=== PATIENT | male | born 1945 | race Hispanic/Latino ===

== ENCOUNTER 2025-02-11 19:46 | Emergency (ER) | payer OTHER, MEDICAID ==
[~2025-02-11] VITALS: Ht 170.2 cm; Wt 85.3 kg
--- NOTE | 2025-02-11 20:33 | ERN ---
ED Note History of Present Illness Stated Complaint: LAC/AVULSION TO RT MIDDLE FINGER WITH LAWNMOVER Chief Complaint: Laceration/Avulsion Time Seen by MD: 19:53 Dictation: 79-year-old male presents to ER complaints of laceration to right 3rd digit. Patient states he stuck his hand under the lawnmower while it was on and it cut his finger. Patient unknown of last tetanus shot. Allergies: Coded Allergies: levofloxacin (Unverified Allergy, Unknown, 02/11/25) Home Meds Active Scripts Cephalexin (Cephalexin) 500 Mg Tablet, 1 TAB PO TID for 10 Days, #30 TAB 0 Refills Prov:CLAUDIA MARTINEZ RECEPTIONIST NURSE 02/11/25 Past Medical History Past Medical History: Diabetes-Type II, Hypertension, Hypothyroid Additional Past Medical Hx: PROSTATE CA (IN REMISSION) Surgical History: Other Surgical History Other: HERNIA REPAIR Review of System Dictation Constitutional: Negative for fever,chills, and weight loss Eyes: Negative for injury, pain,redness, and discharge ENT: Negative for injury,pain or swelling Cardiovascular: Negative for chest pain, palpitations, and edema Respiratory: Negative for shortness of breath, cough, wheezing, and pleuritic chest pain Abdomen/GI: Negative for abdominal pain, nausea, vomiting, diarrhea, and constipation Back: Negative for injury and pain : Negative for injury, bleeding and discharge MS/Extremity: Negative for injury and deformity Skin: Positive for laceration Neuro: Negative for headache, weakness, numbness, tingling, and seizure Psych: Negative for suicide ideation, homicidal ideation, and hallucinations Allergy/Immunology: Negative for hives, rash, and allergies ALL SYSTEMS NEGATIVE, EXCEPT NOTED ABOVE. Initial Vital Sign VS Vital Signs Date Time Temp Pulse Resp B/P (MAP) Pulse Ox O2 Delivery O2 Flow Rate FiO2 02/11/25 19:50 98.2 59 20 205/84 97 Room Air Physical Exam Dictation General: awake, alert, NAD Head/Face: Normocephalic, atraumatic Eyes: PERRL, EOMI, vision at baseline ENT: oral cavity clear, TMs clear, no signs of infection Neck: Trachea midline, supple, no nuchal rigidity Cardiovascular: RRR, normal S1/S2, No MRGs, no JVD Respiratory: CTAB, no respiratory distress, No rales or wheezes Abdomen: Soft, non-tender, non-distended, normal bowel sounds, no guarding or rebound. Skin: Warm, dry, normal turgor, no rash. 3 cm skin avulsion to anterior side of right 3rd digit MS/Extremity: Pulses equal, no cyanosis, neurovascular intact, FROM Neuro: COAx4, GCS 15, strength 5/5, CN 2-12 intact, normal cerebellar exam, normal gait, Psych: Normal behavior, mood, and affect normal ED Course ED Course Orders Procedure Category Date Status Time Hand 3+Vws Rt RAD 02/11/25 Resulted 20:03 Tetanus,Diphtheria PHA 02/11/25 Complete Tox [Adult] (Diphther 20:30 Wound Care (Er) CPOE 02/11/25 Transmitted 20:03 Cefazolin Sodium 1 Gm PHA 02/11/25 Complete Vial (Ancef 1 Gm V 21:23 Water For PHA 02/11/25 Complete Injection,Sterile 21:40 Current Medications Medications (Trade) Dose Ordered Sig/David Route PRN Reason Start Time Stop Time Status Last Admin Dose Admin Cefazolin Sodium (ANCEF 1 gm vial) 1 gm NOW STAT IM 02/11/25 21:23 02/11/25 21:31 DC 02/11/25 21:54 Sterile Water (Sterile Water, Injection) 10 ml STK-MED ONCE .ROUTE 02/11/25 21:40 02/11/25 21:40 DC Tetanus/ Diphtheria Toxoids Adsorbed (DiphthERIA-teTANUS TOXOID [ADULT]/ DECAVAC) 0.5 ml ONCE ONCE IM 02/11/25 20:30 02/11/25 20:31 DC 02/11/25 21:29 Vital Signs Date Time Temp Pulse Resp B/P (MAP) Pulse Ox O2 Delivery O2 Flow Rate FiO2 02/11/25 19:50 98.2 59 20 205/84 97 Room Air Medical Decision Making MDM 79-year-old male presents to ER complaints of laceration to right 3rd digit. Patient states he stuck his hand under the lawnmower while it was on and it cut his finger. Patient unknown of last tetanus shot. MDM: Differential diagnosis: Skin avulsion, laceration, finger fracture Rationale: Tests considered and ordered secondary to shared decision making include: labs, ECG and radiology Previous outside records reviewed: Old ER visits. Risk of complication and/or morbidity or mortality of patient management: None Medications-Per medication reconciliation Need for hospitalization: Patient does NOT meet criteria for hospitalization. Need for emergency major/minor surgery: No There are no social concerns with this patient. Prescription drug management Prescriptions will include symptomatic care Patient's prior external medical records from other ER visits were reviewed by me as indicated. Prior testing and results from previous visits were reviewed. Prior tests were taken into account with medical decision making and resource utilization, independent historian/historians were used to obtain complete medical history. I independently interpreted the test that were performed, results were reviewed by me and considered findings on radiology if ordered. PATIENT VSS, NAD, NONTOXIC, STABLE FOR DISCHARGE. PT GIVEN DISCHARGE INSTRUCTIONS IN LAYMAN TERMS AND UNDERSTOOD, ALL QUESTIONS ANSWERED. PT WILL FOLLOW UP WITH PCP AND RETURN TO THE ER IF WORSE. Procedure Procedure Dictation: Right 3rd digit cleansed and dressed with nonadhesive dressing. Finger splint applied DX & DISP Disposition: Discharge Departure Impression: Primary Impression: Avulsion of skin of finger Condition: Stable Scripts Cephalexin (Cephalexin) 500 Mg Tablet 1 TAB PO TID for 10 Days, #30 TAB 0 Refills Prov: CLAUDIA MARTINEZ NP 02/11/25 Additional Instructions: Keep area clean and dry. Keep the dressing on it. Take antibiotic to prevent infection. FOLLOW-UP WITH YOUR PCP IN 24-72 HOURS AND IN THE EVENT IF SYMPTOMS WORSEN OR AN EMERGENCY OVERNIGHT REPORT TO THE ED IMMEDIATELY Referrals: SELF,REFERRAL (PCP) CLAUDIA MARTINEZ NP Feb 11, 2025 20:33
--- NOTE | 2025-02-11 21:27 | HMCIMG ---
EXAM: CR right Hand, 4 View. CLINICAL HISTORY: r/o fracture COMPARISON: None provided. FINDINGS: BONES: No acute fracture or aggressive appearing osseous lesion. JOINTS: No evidence of dislocation. The joint spaces are normal. SOFT TISSUES: The soft tissues appear within normal limits. No radiopaque foreign body is seen. IMPRESSION: No acute pathology evident. No acute fracture or dislocation. /[place]
[2025-02-11] MEDS ORDERED: CEPH500T PO (21:28)
--- NOTE | 2025-02-11 21:36 | NUR ---
SOAKED IN NS WITH IODINE, RINSED WITH NS, DRIED, COVERED WITH NONADHESIVE GAUZE.
[2025-02-11 22:07] VITALS: BP 134/79; PULSE 76; RESP 18; TEMP 98.3; O2SAT 98
== END 2025-02-11 22:07 | disposition home or self-care (01) ==
LOC: EDH 19:46
DX: S61.202A Unspecified open wound of right middle finger without damage to nail, initial encounter (principal); E03.9 Hypothyroidism, unspecified; E11.9 Type 2 diabetes mellitus without complications; I10 Essential (primary) hypertension; Z88.1 Allergy status to other antibiotic agents; Z98.890 Other specified postprocedural states
CPT/HCPCS: 99284; 90714; 73130; 90471; 29130; 96372; J0690